=== PATIENT | male | born 1995 | race Hispanic/Latino ===

== ENCOUNTER → 2018-08-14 | Outpatient (CLI) | payer SELFPAY ==
--- NOTE | 2018-08-14 13:43 | REP ---
Clinical: Left ankle trauma/pain. Technique: AP, lateral, bilateral oblique views of the left ankle. Findings: Lateral swelling consist with inversion injury. No acute fracture or dislocation. Ankle mortise intact. Impression: Lateral swelling. No acute fracture. Electronically Signed by Sergio Rojo MD 08/14/2018 01:35 P
== END ==
LOC: M ADAMS 12:31
PROVIDERS: ATTEND Physician Assistant
DX: M25.572 Pain in left ankle and joints of left foot (principal)